=== PATIENT | male | born 1980 | race Caucasian/White ===

== ENCOUNTER 2020-07-31 12:55 | Emergency (ER) | payer OTHER ==
[~2020-07-31] VITALS: Ht 172.7 cm; Wt 164.1 kg
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
[2020-07-31] MEDS ORDERED: TRM50T PO (14:42)
[2020-07-31] MEDS ORDERED: CYCL10TA9 PO (14:42)
[2020-07-31 14:53] VITALS: BP 123/78
== END 2020-07-31 14:53 | disposition home or self-care (01) ==
LOC: ER FS 12:58
DX: S06.0X0A Concussion without loss of consciousness, initial encounter (principal); S13.4XXA Sprain of ligaments of cervical spine, initial encounter; S43.401A Unspecified sprain of right shoulder joint, initial encounter; S70.01XA Contusion of right hip, initial encounter; V86.55XA Driver of 3- or 4- wheeled all-terrain vehicle (ATV) injured in nontraffic accident, initial encounter
CPT/HCPCS: 71046; 73030; 73502; 99283; A4565